=== PATIENT | female | born 1995 | race Caucasian/White ===

== ENCOUNTER 2021-08-14 19:34 | Emergency (ER) | payer OTHER ==
[~2021-08-14] VITALS: Ht 170.2 cm; Wt 86.5 kg
[2021-08-14] MEDS ORDERED: SYNT100T PO (19:47)
[2021-08-14] MEDS ORDERED: ONDANSETRON 4MG/2ML VIAL IV ONE (20:15)
[2021-08-14] MEDS ORDERED: NS 1,000 ML IV ONE ×2 (20:15→22:40)
[2021-08-14] MEDS ORDERED: ACETAMINOPHEN 500 MG TAB PO ONE (20:15)
--- OUTSIDE RECORDS SUMMARY | 2021-08-14 20:39 | CCD ---
Author Author [facility] Organization [facility] Address Unknown Phone Unavailable Support Name Relationship Address Phone SSV* Next Of Kin [address] [place], [place] [id number] STACI NELSON Next Of Kin [address] [place] [id number] Re-disclosure Warning The records that you are about to access may contain information from federally-assisted alcohol or drug abuse programs. If such information is present, then the following federally mandated warning applies: This information has been disclosed to you from records protected by federal confidentiality rules (42 CFR part 2). The federal rules prohibit you from making any further disclosure of this information unless further disclosure is expressly permitted by the written consent of the person to whom it pertains or as otherwise permitted by 42 CFR part 2. A general authorization for the release of medical or other information is NOT sufficient for this purpose. The Federal rules restrict any use of the information to criminally investigate or prosecute any alcohol or drug abuse patient.The records that you are about to access may contain highly sensitive health information, the redisclosure of which is protected by Article 27-F of the [facility] Public Health law. If you continue you may have access to information: Regarding HIV / AIDS; Provided by facilities licensed or operated by the [facility] Office of Mental Health; or Provided by the [facility] Office for People With Developmental Disabilities. If such information is present, then the following [facility] mandated warning applies: This information has been disclosed to you from confidential records which are protected by state law. State law prohibits you from making any further disclosure of this information without the specific written consent of the person to whom it pertains, or as otherwise permitted by law. Any unauthorized further disclosure in violation of state law may result in a fine or nursing home sentence or both. A general authorization for the release of medical or other information is NOT sufficient authorization for further disc losure. Medications No Information Insurance Providers Payer name Policy type / Coverage type Policy ID Covered alliance party ID Covered alliance party's relationship to peña Policy Peña Plan Information [facility] [id number] [facility] [id number] Problems, Conditions, and Diagnoses No Information Surgeries/Procedures No Information Results No Information Social History No Information
[2021-08-14 20:50] VITALS: BP 116/61
[2021-08-14 20:58] LABS: BASO % 0.4 % (0.0-1.0); EOS % 0.4 % (0.0-3.0); HEMOGLOBIN 13.5 g/dl (12.0-15.5); LYMPH # 2.2 10^3/uL (1.5-5.0); LYMPH % 29.8 % (24.0-44.0); MEAN CORPUSCULAR HEMOGLOBIN 30.8 pg (27.0-33.0); MEAN CORPUSCULAR HGB CONC 33.8 g/dl (32.0-36.5); MEAN CORPUSCULAR VOLUME 91.1 fl (80.0-96.0); MONO # 0.5 10^3/uL (0.0-0.8); MONO % 7.3 % (2.0-8.0); NEUTROPHILS # 4.6 10^3/uL (1.5-8.5); NEUTROPHILS % 61.8 % (36.0-66.0); PLATELET COUNT, AUTOMATED 243 10^3/uL (150-450); RED BLOOD COUNT 4.39 10^6/uL (4.00-5.40); WHITE BLOOD COUNT 7.4 10^3/uL (4.0-10.0)
[2021-08-14 21:32] LABS: MONO REFLEX EBV COMP NEGATIVE (NEGATIVE)
[2021-08-14 22:42] LABS: APPEARANCE, URINE CLOUDY (CLEAR); BACTERIA, URINE AUTO NEGATIVE (NEGATIVE); BILIRUBIN, URINE AUTO NEGATIVE (NEGATIVE); BLOOD, URINE BLOOD NEGATIVE (NEGATIVE); COLOR, URINE AMBER (YELLOW); GLUCOSE, URINE (UA) AUTO NEGATIVE (NEGATIVE); KETONE, URINE AUTO 2+ mg/dL (NEGATIVE); LEUKOCYTE ESTERASE, URINE AUTO 3+ (NEGATIVE); MUCUS, URINE LARGE (NEGATIVE); NITRITE, URINE AUTO NEGATIVE (NEGATIVE); PROTEIN, URINE AUTO 2+ mg/dL (NEGATIVE); RBC, URINE AUTO 8 /HPF (0-3); SPECIFIC GRAVITY URINE AUTO 1.029 (1.002-1.035); SQUAMOUS EPITHELIAL CELL UR AU 41 /HPF (0-6); WBC, URINE AUTO 67 /HPF (0-3)
[2021-08-14 23:01] LABS: FREE T4 1.07 NG/DL (0.76-1.46)
--- NOTE | 2021-08-15 18:22 | ECGEPIP ---
[facility] - ED Test Date: 2021-08-14 Pat Name: DEIDRA NELSON Department: Room: - Gender: Female Graphic Designer: STEVEN : 1995 Requested By: AMADO ANDERSON PA-C. Order Number: [id number] Reading MD: Michelle Reyes Measurements Intervals [place] Rate: 57 P: 28 OR: 126 QRS: 70 QRSD: 80 T: 50 QT: 424 QTc: 412 Interpretive Statements Sinus bradycardia No prior Electronically Signed on 08-15-2021 18:21:54 EDT by Michelle Reyes
[2021-08-16 17:07] LABS: EBV VIRAL CAPSID AG IgG 63.2 U/mL (0.0-17.9); EBV VIRAL CAPSID AG IgM 64.7 U/mL (0.0-35.9)
== END 2021-08-14 23:25 | disposition home or self-care (01) ==
LOC: M ED 19:34
DX: O99.511 Diseases of the respiratory system complicating pregnancy, first trimester (principal); O21.1 Hyperemesis gravidarum with metabolic disturbance; O26.891 Other specified pregnancy related conditions, first trimester; R00.1 Bradycardia, unspecified; O99.281 Endocrine, nutritional and metabolic diseases complicating pregnancy, first trimester
CPT/HCPCS: 80047; 81001; 84439; 84443; 85025; 86308; 86664; 86665; 87086; 87798; 93005; 96361; 96374; 99284; J2405

== ENCOUNTER 2022-02-26 02:49 | Outpatient (CLI) | payer OTHER ==
[~2022-02-26] VITALS: Ht 170.2 cm; Wt 98.3 kg
[~2022-02-26 02:49] MED LIST: LEVO100T5 PO; LEXA1TAB PO; MED REC COMMENT; PREN27TA3 PO; SYNT100T PO
[2022-02-26 03:05] VITALS: BP 113/56
[2022-02-26 03:06] VITALS: BP 113/56
[2022-02-26 04:34] VITALS: BP 119/58
[2022-02-26] MEDS ORDERED: FLUCONAZOLE 50MG TABLET PO ONE (06:00)
[2022-02-26 06:31] LABS: GC DNA AMPLIFICATION NEGATIVE (NEGATIVE)
== END 2022-02-26 05:05 | disposition home or self-care (01) ==
LOC: M LDO 02:49
PROVIDERS: ATTEND Obstetrics & Gynecology
DX: O47.03 False labor before 37 completed weeks of gestation, third trimester (principal); Z3A.35 35 weeks gestation of pregnancy; O23.593 Infection of other part of genital tract in pregnancy, third trimester; Z11.3 Encounter for screening for infections with a predominantly sexual mode of transmission; Z72.89 Other problems related to lifestyle
CPT/HCPCS: 59025; 81001; 87081; 87086; 87810; 87850; G0378; G0463

== ENCOUNTER 2022-03-20 21:27 | Outpatient (CLI) | payer OTHER ==
[~2022-03-20] VITALS: Ht 170.2 cm; Wt 97.8 kg
[2022-03-20 21:44] VITALS: BP 122/71
[2022-03-20 22:32] VITALS: BP 125/57
== END 2022-03-20 22:30 | disposition home or self-care (01) ==
LOC: M LDO 21:27
PROVIDERS: ATTEND Obstetrics & Gynecology
DX: O47.1 False labor at or after 37 completed weeks of gestation (principal); O99.283 Endocrine, nutritional and metabolic diseases complicating pregnancy, third trimester; E03.9 Hypothyroidism, unspecified; O99.343 Other mental disorders complicating pregnancy, third trimester; F32.A Depression, unspecified; F41.9 Anxiety disorder, unspecified; O98.513 Other viral diseases complicating pregnancy, third trimester; B00.1 Herpesviral vesicular dermatitis; Z3A.39 39 weeks gestation of pregnancy; Z79.899 Other long term (current) drug therapy
CPT/HCPCS: 59025; 76815; G0378; G0463

== ENCOUNTER 2022-03-24 08:35 | Outpatient (CLI) | payer OTHER ==
[~2022-03-24] VITALS: Ht 170.2 cm; Wt 97.8 kg
[2022-03-24 08:53] VITALS: BP 107/61
[2022-03-24] MEDS ORDERED: MAGN300C PO (09:08)
[2022-03-24] MEDS ORDERED: VITA100T16 PO (09:08)
[2022-03-24] MEDS ORDERED: VALT1TAB PO (09:08)
[2022-03-24 10:03] VITALS: BP 118/68
== END 2022-03-24 10:15 | disposition home or self-care (01) ==
LOC: M LDO 08:35
PROVIDERS: ATTEND Obstetrics & Gynecology
CPT/HCPCS: 59025; G0463

== ENCOUNTER 2022-03-26 16:35 | Outpatient (CLI) | payer OTHER ==
[~2022-03-26] VITALS: Ht 170.2 cm; Wt 98.5 kg
[~2022-03-26 16:35] MED LIST changes: +MAGN300C PO; +VALT1TAB PO; +VITA100T16 PO
[2022-03-26 16:51] VITALS: BP 110/68
== END 2022-03-26 17:25 | disposition home or self-care (01) ==
LOC: M LDO 16:35
PROVIDERS: ATTEND Obstetrics & Gynecology
CPT/HCPCS: 59025; G0463

== ENCOUNTER 2022-03-27 01:20 | Inpatient (IN) | payer OTHER ==
[2022-03-27] VITALS (38 sets, daily range): BP systolic 94–139; BP diastolic 50–74
[~2022-03-27] VITALS: Ht 170.2 cm; Wt 98.9 kg
[2022-03-27] MEDS ORDERED: LR 1,000 ML IV SCH (02:10)
[2022-03-27] MEDS ORDERED: OXYTOCIN INJ 10 UNITS/ML VIAL (J2590) IV PRN (02:10)
[2022-03-27] MEDS ORDERED: METHYLERGONOVINE MALEATE 0.2 MG/ML VIAL (J2210) IM PRN (02:10)
[2022-03-27] MEDS ORDERED: CARBOPROST TROMETHAMINE 250 MCG/ML AMP IM PRN (02:10)
[2022-03-27] MEDS ORDERED: OXYTOCIN DRIP 30 UNITS in IV 1 EA IV PRN ×6 (02:10)
[2022-03-27] MEDS ORDERED: LIDOCAINE 1% MDV 20ML VIAL INFIL PRN (02:10)
[2022-03-27] MEDS ORDERED: LACTATED RINGER'S 1000 ML IV STA (02:10)
[2022-03-27] MEDS ORDERED: TRANEXAMIC ACID INJection 1,000 MG in NS 100 ML IV PRN (02:10)
[2022-03-27 03:13] LABS: HEMATOCRIT 32.5 % (36.0-47.0); HEMOGLOBIN 11.2 g/dl (12.0-15.5); MEAN CORPUSCULAR HEMOGLOBIN 32.4 pg (27.0-33.0); MEAN CORPUSCULAR HGB CONC 34.5 g/dl (32.0-36.5); MEAN CORPUSCULAR VOLUME 93.9 fl (80.0-96.0); PLATELET COUNT, AUTOMATED 261 10^3/uL (150-450); RED BLOOD COUNT 3.46 10^6/uL (4.00-5.40); WHITE BLOOD COUNT 10.7 10^3/uL (4.0-10.0)
[2022-03-27] MEDS ORDERED: OXYTOCIN DRIP 30 UNITS in IV 1 EA IV SCH (08:15)
[2022-03-27] MEDS: LR 1,000 ML IV SCH ×4 (10:07→17:37)
[2022-03-27] MEDS: LEVOTHYROXINE 100MCG TABLET (0.1MG) PO SCH (11:45)
[2022-03-27] MEDS ORDERED: FENTANYL 2MCG/ML ROPIVACAINE 0.2% IN 0.9% NACL 100ML IVBAG As Ordered ONE (13:09)
[2022-03-27] MEDS ORDERED: diphenhydrAMINE 50MG/ML VIAL (J1200) IV PRN (13:30)
[2022-03-27] MEDS ORDERED: LR 500 ML IV PRN (13:30)
[2022-03-27] MEDS ORDERED: ONDANSETRON 4MG/2ML VIAL IV PRN (13:30)
[2022-03-27] MEDS ORDERED: EPIDURAL/PCA KEYS XX PRN (13:30)
[2022-03-27] MEDS ORDERED: FENTANYL/ROPIVACAINE/NACL BAG 100 ML EPIDURAL SCH (13:30)
[2022-03-27] MEDS ORDERED: NALOXONE INJ 0.4MG/1ML VIAL (J2310 PER 1MG) IV PRN (13:30)
[2022-03-27] MEDS ORDERED: ePHEDrine SULFATE 25 MG/5 ML(5MG/ML) SYRINGE IVP PRN (13:30)
[2022-03-27] MEDS ORDERED: ACETAMINOPHEN 500 MG TAB PO PRN (21:15)
[2022-03-27] MEDS ORDERED: METHYLERGONOVINE MALEATE 0.2 MG TAB PO PRN (21:15)
[2022-03-27] MEDS ORDERED: IBUPROFEN 600MG TAB PO PRN (21:15)
[2022-03-27] MEDS ORDERED: ACETAMINOPHEN TAB 650MG DOSE (2X325MG) PO PRN (21:15)
[2022-03-27] MEDS ORDERED: DOCUSATE SODIUM 100MG CAPSULE PO PRN (21:15)
[2022-03-27] MEDS ORDERED: RHOGAM 300 MCG (1500 IU) INJ (J2790) IM SCH (21:15)
[2022-03-27] MEDS ORDERED: DIBUCAINE 1% OINTMENT 30GM TOP PRN (21:15)
[2022-03-27] MEDS ORDERED: IBUPROFEN 800 MG TAB PO PRN (21:15)
[2022-03-27] MEDS: ESCITALOPRAM OXALATE 10 MG TAB (LEXAPRO) PO SCH (21:57)
[2022-03-28 06:00] VITALS: BP 113/63
[2022-03-28] MEDS ORDERED: LEVOTHYROXINE 100MCG TABLET (0.1MG) PO SCH (06:00)
[2022-03-28] MEDS: LEVOTHYROXINE 100MCG TABLET (0.1MG) PO SCH (06:39)
[2022-03-28] MEDS: PRENATAL VITAMINS CHEWABLE TABLET PO SCH (08:52)
[2022-03-28] MEDS ORDERED: ESCITALOPRAM OXALATE 10 MG TAB (LEXAPRO) PO SCH ×2 (09:00)
[2022-03-28] MEDS ORDERED: PRENATAL VITAMINS CHEWABLE TABLET PO SCH (09:00)
[2022-03-28 17:55] VITALS: BP 146/77
[2022-03-28] MEDS: ESCITALOPRAM OXALATE 10 MG TAB (LEXAPRO) PO SCH (21:39)
[2022-03-29 05:54] VITALS: BP 118/55
[2022-03-29] MEDS ORDERED: ACET1TAB55 PO (05:55)
[2022-03-29] MEDS ORDERED: IBUP-1022 PO (05:55)
[2022-03-29] MEDS ORDERED: COLA100C5 PO (05:55)
[2022-03-29] MEDS: LEVOTHYROXINE 100MCG TABLET (0.1MG) PO SCH (06:20)
[2022-03-29] MEDS ORDERED: MEASLES,MUMPS,RUBELLA VACCINE INJ (MMR-II) (90707) SC ONE (09:00)
[2022-03-29] MEDS: PRENATAL VITAMINS CHEWABLE TABLET PO SCH (09:09)
== END 2022-03-29 14:40 | disposition home or self-care (01) | DRG 807 ==
LOC: M LDO 01:20 → M LDI 02:09 → M OBS 20:10
PROVIDERS: ADMIT Obstetrics & Gynecology; ATTEND Obstetrics & Gynecology
PROC: 10E0XZZ Delivery of Products of Conception, External Approach (ICD-10-PCS; principal; 2022-03-27)
PROC: 10907ZC Drainage of Amniotic Fluid, Therapeutic from Products of Conception, Via Natural or Artificial Opening (ICD-10-PCS; 2022-03-27)
DX: O99.284 Endocrine, nutritional and metabolic diseases complicating childbirth (principal); Z37.0 Single live birth; Z3A.40 40 weeks gestation of pregnancy; E03.9 Hypothyroidism, unspecified; F41.9 Anxiety disorder, unspecified; F32.9 Major depressive disorder, single episode, unspecified; O99.344 Other mental disorders complicating childbirth; G43.909 Migraine, unspecified, not intractable, without status migrainosus; O99.354 Diseases of the nervous system complicating childbirth; B00.9 Herpesviral infection, unspecified; O98.519 Other viral diseases complicating pregnancy, unspecified trimester; A74.9 Chlamydial infection, unspecified; O69.82X0 Labor and delivery complicated by other cord entanglement, without compression, not applicable or unspecified

== ENCOUNTER 2022-04-15 00:28 | Emergency (ER) | payer OTHER ==
[~2022-04-15] VITALS: Ht 170.2 cm; Wt 92.7 kg
[~2022-04-15 00:28] MED LIST changes: +ACET1TAB55 PO; +COLA100C5 PO; +IBUP-1022 PO
[2022-04-15 00:29] VITALS: BP 113/63
== END 2022-04-15 03:10 | disposition left against medical advice (07) ==
LOC: M ED 00:28
DX: Z53.21 Procedure and treatment not carried out due to patient leaving prior to being seen by health care provider (principal)